=== PATIENT | male | born 1940 | race Native Hawaiian/Other Pacific Islander ===

== ENCOUNTER 2017-10-27 02:09 | Emergency (ER) | payer MEDICARE ==
[2017-10-27 02:18] VITALS: BMI 29.0
[2017-10-27 02:23] VITALS: BP 148/66; PULSE 98; RESP 18; TEMP 98.2; O2SAT 99
--- NOTE | 2017-10-27 02:29 | ED PDOC ---
Arrival/HPI - General Time Seen by Provider: 10/27/17 02:25 - History of Present Illness Narrative History of Present Illness (Text): 77 y/o M c PMHx dementia BIBEMS after patient was pulled over [place] [address] [place] [address]. Patient was reported missing from [facility] since 14 hours ago. Patient denies any pain, wants to go home. Denies dyspnea. Family/Social History Family/Social History: No Known Family HX Allergies/Home Meds Allergies/Adverse Reactions: Allergies No Known Allergies Allergy (Verified 10/27/17 02:19) Home Medications: Home Meds Medication Instructions Recorded Confirmed Losartan Potassium [Losartan 50 mg PO DAILY 10/27/17 10/27/17 Potassium] Review of Systems - Physician Review All systems were reviewed & negative as marked: Yes - Review of Systems Constitutional: absent: Fevers Respiratory: absent: SOB Physical Exam - Physical Exam Narrative Physical Exam (Text): Gen: NAD Head: AT Eyes: PERRL ENT: MMM Neck: No midline tenderness CV: Regular rate Resp: No accessory muscle use Abd: Midline surgical scar Back: No midline tenderness Extremities: Pitting edema bilateral lower extremities Skin: No rash Neuro: Alert, no focal deficit. Oriented to month, not year, knows in hospital but unsure which one. Vital Signs Temp Pulse Resp BP Pulse Ox 10/27/17 02:22 98.2 F 98 H 18 148/66 99 Medical Decision Making ED Course and Treatment: EKG NSR 105 bpm, no ST/T wave changes. Patient in no distress. Will observe in ED until family arrives to take patient home. Disposition/Present on Arrival - Present on Arrival Any Indicators Present on Arrival: No - Disposition Have Diagnosis and Disposition been Completed?: Yes Diagnosis: Dementia Disposition: HOME/ ROUTINE Disposition Time: 02:29 Patient Plan: Discharge Condition: STABLE Discharge Instructions (ExitCare): Dementia (DC)
--- NOTE | 2017-10-27 14:50 | CARD ---
APPROVED REPORT EKG Measurement Heart [id number] <Conclusion> Sinus tachycardia Otherwise normal ECG
== END 2017-10-27 03:17 | disposition home or self-care (01) ==
LOC: ED 02:09
DX: F03.90 Unspecified dementia, unspecified severity, without behavioral disturbance, psychotic disturbance, mood disturbance, and anxiety (principal)